=== PATIENT | female | born 1985 | race Caucasian/White ===

== ENCOUNTER 2024-06-18 08:46 | Emergency (ER) | payer SELFPAY ==
[~2024-06-18] VITALS: Ht 162.6 cm; Wt 81.6 kg
[2024-06-18 09:01] VITALS: BP 137/86; PULSE 92; RESP 16; TEMP 98; O2SAT 97
[2024-06-18] MEDS ORDERED: XYLOCAINE 2%-EPI 1:100,000 ONE (09:14)
[2024-06-18] MEDS ORDERED: XYLOCAINE 1%-EPI ONE (09:15)
[2024-06-18] MEDS ORDERED: SULF1TAB24 PO (09:31)
[2024-06-18 09:33] VITALS: BP 162/58; PULSE 86; RESP 16; TEMP 98; O2SAT 97
== END 2024-06-18 09:37 | disposition home or self-care (01) ==
LOC: ER 08:46
DX: L02.212 Cutaneous abscess of back [any part, except buttock and flank] (principal); Z90.710 Acquired absence of both cervix and uterus
CPT/HCPCS: 10060; 99283